=== PATIENT | male | born 1990 | race Asian ===

== ENCOUNTER 2018-06-02 23:59 | Emergency (ER) | payer SELFPAY ==
[~2018-06-02] VITALS: Ht 170.2 cm; Wt 86.2 kg
[2018-06-03 00:40] VITALS: BP_SYST 146
[2018-06-03] MEDS ORDERED: MAG HYDROX/AL HYDROX/SIMETH 30 ML, BELLADONNA ALKALOIDS/PHENOBARB 10 ML, LIDOCAINE VISC... PO ONE ×3 (02:30)
[2018-06-03] MEDS ORDERED: NACL 0.9% 1,000 ML IV ONE (02:30)
[2018-06-03 02:45] LABS: BASOPHILS # (AUTO) 0.3 K/uL (0.0-0.2); BASOPHILS % (AUTO) 3.2 % (0.0-2.0); EOSINOPHILS % (AUTO) 0.2 % (0.0-4.0); LYMPHOCYTES # (AUTO) 0.9 K/uL (1.0-5.5); LYMPHOCYTES % (AUTO) 9.9 % (20.5-51.5); MEAN CORPUSCULAR HEMOGLOBIN 29 pg (27-31); MEAN CORPUSCULAR HGB CONC 33 % (32-36); MEAN CORPUSCULAR VOLUME 88 fL (79.0-98.0); MONOCYTES # (AUTO) 0.8 K/uL (0.0-1.0); MONOCYTES % (AUTO) 8.1 % (1.7-9.3); NEUTROPHILS # (AUTO) 7.5 K/uL (1.8-7.7); NEUTROPHILS % (AUTO) 78.6 % (40.0-70.0); PLATELET COUNT (AUTO) 218 K/uL (130-430); RED BLOOD CELL COUNT(AUTO) 5.44 MIL/uL (4.2-6.2); RED CELL DISTRIBUTION WIDTH 12.2 % (9.0-15.0); WHITE BLOOD COUNT (AUTO) 9.5 K/uL (4.8-10.8)
[2018-06-03 03:04] LABS: ANION GAP 9 (5-15); CALCIUM 8.8 mg/dL (8.4-11.0); CHLORIDE 98 mmol/L (98-107); CREATININE 0.96 mg/dL (0.55-1.30); GLUCOSE 139 mg/dL (70-99); POTASSIUM 3.6 mmol/L (3.5-5.1); SODIUM SERUM 136 mmol/L (136-145); UREA NITROGEN, BLOOD 9 mg/dL (8-21)
[2018-06-03 03:09] LABS: ALANINE AMINOTRANSFERASE 37 U/L (12-78); ALBUMIN 4.1 g/dL (3.4-4.8); ASPARTATE AMINOTRANSFERASE 24 U/L (10-37); TOTAL BILIRUBIN 0.8 mg/dL (0.0-1.0)
[2018-06-03 03:11] LABS: GFR AFRICAN AMERICAN 121 mL/min (>90)
[2018-06-03] MEDS ORDERED: PANTOPRAZOLE SODIUM 40 MG TAB PO ONE (04:00)
[2018-06-03 04:05] VITALS: BP_SYST 138
== END 2018-06-03 04:05 | disposition home or self-care (01) ==
LOC: SED 23:59
DX: K29.70 Gastritis, unspecified, without bleeding (principal); K21.9 Gastro-esophageal reflux disease without esophagitis
CPT/HCPCS: 36415; 71045; 80053; 84484; 85025; 99284; 93005; J2001